=== PATIENT | male | born 1940 | race Caucasian/White ===

== ENCOUNTER 2016-07-15 07:45 | Emergency (ER) | payer MEDICARE ==
[2016-07-15] MEDS ORDERED: Aspirin Low Dose CHEW TAB* 81 MG PO ONE (08:08)
[2016-07-15 08:17] VITALS: BP 220/125
--- NOTE | 2016-07-15 10:23 | UC ---
Isael Ferguson Michael, scribed for Reta Reagan DO on 07/15/16 at 0818 . Hypertension HPI - HPI Summary HPI Summary: 76 y/o male comes to [facility] presenting with elevated blood pressure since last night. The pt reports that his blood pressure was approximately 200's/100's, but he did not have associated sx until this morning. His current blood pressure is 240/132. Nothing alleviates or aggravates his blood pressure. The pt also c/o dizziness and shakiness that started this morning. States that he alomst fainted in the shower. He also presents a constant, sharp right sided WALL that is aggravated with light. The pt has a hx of WALL, and he notes the current WALL feels nml. All other associated sx are negative. The PMHx is significant for WALL, HTN, hyperlipidemia, and lymphoma. - History of Current Complaint Stated Complaint: BP UP Time Seen by Provider: 07/15/16 07:46 Hx Obtained From: Patient, Medical Records Onset/Duration: Gradual Onset, Lasting Hours, Still Present Reported Blood Pressure Prior To Arrival:: 200/100 Aggravating Factor(s): Nothing Alleviating Factor(s): Nothing Associated Signs And Symptoms: Positive: Vision Changes - pjotophobia, Headaches , Dizziness - and shakiness. Negative: Chest Pain, Numbness, SOB - Risk Factors Cardiac Risk Factors: Hypertension - Allergies/Home Medications Allergies/Adverse Reactions: Allergies Allergy/AdvReac Type Severity Reaction Status Date / Time Penicillins [PCN] Allergy Unknown Verified 07/15/16 08:54 Reaction Details Sulfa Antibiotics Allergy Unknown Verified 07/15/16 08:54 Reaction Details Home Medications: Home Medications Lisinopril [Zestril 20 MG-] 20 mg PO DAILY 07/15/16 [History Confirmed 07/15/16] PMH/Surg Hx/FS Hx/Imm Hx - Additional Past Medical History Additional PMH: The PMHx is significant for WALL, HTN, hyperlipidemia, and lymphoma. Endocrine History Of: Denies: Diabetes Cardiovascular History Of: Reports: Hypertension - Surgical History Surgical History: None - Family History Known Family History: Positive: Unknown, Other - cancer-mother Family History: does not know family hx from father. - Social History Occupation: Retired Lives: With Family Alcohol Use: None Substance Use Type: None Smoking Status (MU): Never Smoked Tobacco Review of Systems Constitutional: Negative Skin: Negative Eyes: Negative ENT: Negative Respiratory: Negative Cardiovascular: Other - elevated high blood pressure Gastrointestinal: Negative Genitourinary: Negative Motor: Negative Neurovascular: Negative Musculoskeletal: Negative Neurological: Headache, Other - dizziness, near syncope Psychological: Negative All Other Systems Reviewed And Are Negative: Yes Physical Exam Triage Information Reviewed: Yes Appearance: Well-Appearing, Well-Nourished, Pain Distress - mild to moderate Vital Signs: Initial Vital Signs Temp 97.3 F 07/15/16 07:53 Pulse 115 07/15/16 07:53 Resp 16 07/15/16 07:53 BP 240/132 07/15/16 07:53 Pulse Ox 95 07/15/16 07:53 Vital Signs Reviewed: Yes Eyes: Positive: Conjunctiva Clear. Negative: Discharge ENT: Positive: Hearing grossly normal. Negative: Muffled/hoarse voice Neck: Positive: Supple, Nontender Respiratory: Positive: Lungs clear, Normal breath sounds, No respiratory distress, No accessory muscle use Cardiovascular: Positive: No Murmur, Tachycardia Musculoskeletal Exam: Normal Neurological: Positive: Alert, Muscle Tone Normal Psychological Exam: Normal Psychological: Positive: Age Appropriate Behavior Skin: Positive: Other - warm, dry, normal color Diagnostics - EKG Cardiac Rate: Tachycardia - 114. significant Q wave II and III Hypertension Course/Dx - Course Course Of Treatment: the pt was accepted to [facility] [place] - Differential Dx/Diagnosis Differential Diagnosis/HQI PQRI: Hypertension, Hypertensive Crisis, Migraine Headache, Myocardial Infarction Provider Diagnoses: hypertensive crisis, near syncope Discharge - Discharge Plan Condition: Guarded Disposition: TRANS HIGHER L OF CARE FAC Referrals: Leonard Norris MD [Medical Doctor] - The documentation as recorded by the Isael allen Michael accurately reflects the service I personally performed and the decisions made by , Reta Reagan DO.
== END 2016-07-15 08:25 | disposition short-term general hospital (02) ==
LOC: UCEAST 07:45
DX: I16.0 Hypertensive urgency (principal); I10 Essential (primary) hypertension; R55 Syncope and collapse
CPT/HCPCS: 93005; 99213; A9270-GY; G0463

== ENCOUNTER 2016-07-15 08:44 | Emergency (ER) | payer MEDICARE ==
[2016-07-15] MEDS ORDERED: NS 0.9% 1000 ML* 1,000 ML IV ONE (09:12)
[2016-07-15] MEDS ORDERED: Labetalol IV* 5 MG/ML 20 ML VIAL IV PUSH ONE ×2 (09:14→09:16)
[2016-07-15 09:25] LABS: Comments Flag Yes; Hematocrit 46 % (42-52); Hemoglobin 16.1 g/dl (14.0-18.0); Mean Corpuscular HGB Conc 35 g/dl (31-36); Mean Corpuscular Hemoglobin 31 pg (27-31); Mean Corpuscular Volume 89 fL (80-94); Mean Platelet Volume 8 um3 (7.4-10.4); Red Cell Distribution Width 13 % (10.5-15); White Blood Count 10.3 10^3/ul (3.5-10.8)
[2016-07-15 09:26] LABS: Add Diff/Slide Review? Slide Review Added
[2016-07-15 09:36] LABS: Albumin 4.2 g/dL (3.2-5.2); BUN/Creatinine Ratio 18.5 (8-20); C Reactive Protein 4.72 mg/L (< 5.00); Calcium 9.7 mg/dL (8.6-10.3); EGFR African American 73.3 (>60); Globulin 2.6 g/dL (2-4); Potassium 3.9 mmol/L (3.5-5.0); Total Bilirubin 0.8 mg/dL (0.2-1.0); Total Protein 6.8 g/dL (6.4-8.9)
[2016-07-15 09:38] LABS: Troponin I 0.01 ng/mL (<0.04)
--- NOTE | 2016-07-15 09:43 | RAD ---
HISTORY: Weakness, pneumonia, CHF COMPARISONS: None VIEWS:1: Single frontal portable view of the chest at 9:35 AM FINDINGS: LINES AND TUBES: None. CARDIOMEDIASTINAL SILHOUETTE: The cardiomediastinal silhouette is normal for portable technique. PLEURA: The costophrenic angles are sharp. No pleural abnormalities are noted. LUNG PARENCHYMA: The lung volumes are low. The lungs are clear accounting for the phase of inspiration. ABDOMEN: The upper abdomen is clear. There is no subphrenic gas. BONES AND SOFT TISSUES: No bone or soft tissue abnormalities are noted. IMPRESSION: LOW LUNG VOLUMES. NO ACTIVE CARDIOPULMONARY DISEASE.
[2016-07-15 09:45] LABS: TSH (Thyroid Stimulating Horm) 1.96 mcIU/mL (0.34-5.60)
[2016-07-15 10:10] LABS: Urine Bilirubin Negative (Negative); Urine Glucose Negative (Negative); Urine Nitrite Negative (Negative)
[2016-07-15] MEDS ORDERED: Metoprolol Tartrate TAB* 25 MG PO ONE (10:35)
[2016-07-15] MEDS ORDERED: Hydrochlorothiazide TAB* 25 MG PO ONE (10:35)
[2016-07-15] MEDS ORDERED: cloNIDine TAB* 0.1 MG PO ONE (10:35)
[2016-07-15] MEDS ORDERED: Lisinopril TAB* 10 MG PO ONE (10:36)
[2016-07-15 12:18] VITALS: BP 135/77
--- NOTE | 2016-07-15 13:37 | ED ---
Kenzie Freguson Matthew, scribed for Roly Larkin MD on 07/15/16 at 0914 . Hypertension - HPI Summary HPI Summary: A 76 y/o male presents to the ED with gradually worsening HTN since last night. The patient is not currently having pain. Associated symptoms include dizziness , lightheadedness, headache, photophobia, and fatigue. He denies chest pain, diaphoresis, urinary symptoms, recent illness, fever, chills, CVA, syncope, vertigo, rashes, pain, weakness, and slurred speech. The patient noted his BP beginning to gradually climb since last night, and while taking a shower this morning, he states he almost fainted multiple times. The patient's blood pressure normal runs ~140/88, and feels well at that pressure. He has recently Dx in February with neck CA, which has been giving him occasional pain. He has an appointment with Dr. Madera tomorrow. PMHx includes HTN, which he has had since high school. The patient denies HLD and Diabetes. He has not recently missed his medication. - History of Current Complaint Chief Complaint: EDHypertension Stated Complaint: HIGH BLOOD PRESSURE COMMING FROM [facility] Time Seen by Provider: 07/15/16 08:58 Hx Obtained From: Patient Onset/Duration: Started Days Ago - last night, Atraumatic, Still Present Timing: Constant Aggravating Factor(s): Nothing Alleviating Factor(s): Nothing Associated Signs & Symptoms: Headaches, Dizziness, Other: - Fatigue; Photophobia ; Lightheadedness - Allergies/Home Medications Allergies/Adverse Reactions: Allergies Allergy/AdvReac Type Severity Reaction Status Date / Time Penicillins [PCN] Allergy Unknown Verified 07/15/16 08:54 Reaction Details Sulfa Antibiotics Allergy Unknown Verified 07/15/16 08:54 Reaction Details Home Medications: Home Medications Hydrochlorothiazide TAB* [Hydrodiuril TAB*] 25 mg PO DAILY 07/15/16 [History Confirmed 07/15/16] Metoprolol Tartrate TAB* [Lopressor TAB*] 25 mg PO DAILY 07/15/16 [History Confirmed 07/15/16] PMH/Surg Hx/FS Hx/Imm Hx Endocrine/Hematology History: Denies: Hx Diabetes, Hx Thyroid Disease Cardiovascular History: Reports: Hx Hypertension Respiratory History: Denies: Hx Asthma, Hx Chronic Obstructive Pulmonary Disease (COPD) GI History: Denies: Hx Ulcer - Cancer History Cancer Type, 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 - Surgical History Surgery Procedure, Year, and Place: RIGHT ANKLE PIN 1963 Infectious Disease History: No Infectious Disease History: Denies: Hx Clostridium Difficile, Hx Hepatitis, Hx Human Immunodeficiency Virus (HIV), Hx of Known/Suspected MRSA, Hx Shingles, Hx Tuberculosis, Hx Known/ Suspected VRE, Hx Known/Suspected VRSA, History Other Infectious Disease, Traveled Outside the [place] in Last 30 Days - Family History Known Family History: Negative: Hypertension, Diabetes Family History: No FHx of CVA - Social History Alcohol Use: Rare Substance Use Type: Reports: None Smoking Status (MU): Former Smoker Review of Systems Positive: Fatigue. Negative: Fever, Chills, Skin Diaphoresis Positive: Photophobia ENT: Negative Cardiovascular: Negative Negative: Chest Pain Respiratory: Negative Negative: Shortness Of Breath Gastrointestinal: Negative Genitourinary: Negative Musculoskeletal: Negative Skin: Negative Neurological: Other - Dizziness; Lightheadedness Positive: Headache. Negative: Weakness, Numbness, Slurred Speech Psychological: Normal All Other Systems Reviewed And Are Negative: Yes Physical Exam - Summary Physical Exam Summary: The patient is well-nourished in no acute distress and in no acute pain. The skin is warm and dry and skin color reflects adequate perfusion. No diaphoresis noted. HEENT: The head is normocephalic and atraumatic. The pupils are equal and reactive. The conjunctivae are clear and without drainage. Nares are patent and without drainage. Mouth reveals moist mucous membranes and the throat is without erythema and exudate. The external ears are intact. The ear canals are patent and without drainage. The tympanic membranes are intact. Neck is supple with full range of motion and non-tender. There are no carotid bruits. There is no neck vein distension. The patient has mild edema on the right side of the neck. Respiratory: Chest is non-tender. Lungs are clear to auscultation and breath sounds are symmetrical and equal. Cardiovascular: Heart is regular rate and rhythm. There is no murmur or rub auscultated. There is no peripheral edema and pulses are symmetrical and equal. Abdomen: The abdomen is soft and non-tender. There are normal bowel sounds heard in all four quadrants and there is no organomegaly palpated. Musculoskeletal: There is no back pain noted. Extremities are non-tender with full range of motion. There is good capillary refill. There is no peripheral edema or calf tenderness elicited. Neurological: Patient is alert and oriented to person, place and time. The patient has symmetrical motor strength in all four extremities. Cranial nerves are grossly intact. Deep tendon reflexes are symmetrical and equal in all four extremities. Psychiatric: The patient has an appropriate affect and does not exhibit any anxiety or depression. Triage Information Reviewed: Yes Vital Signs On Initial Exam: Initial Vitals Temp Pulse Resp BP Pulse Ox 98.6 F 90 11 231/116 95 07/15/16 08:54 07/15/16 08:54 07/15/16 08:54 07/15/16 08:54 07/15/16 08:54 Vital Signs Reviewed: Yes Diagnostics - Vital Signs Vital Signs Temp Pulse Resp BP Pulse Ox 07/15/16 08:54 98.6 F 90 11 231/116 95 - Laboratory Lab Results: Lab Results 07/15/16 07/15/16 07/15/16 Range/Units 08:00 08:00 08:00 WBC 10.3 (3.5-10.8) 10^3/ul RBC 5.20 (4.0-5.4) 10^6/ul Hgb 16.1 (14.0-18.0) g/dl Hct 46 (42-52) % MCV 89 (80-94) fL MCH 31 (27-31) pg MCHC 35 (31-36) g/dl RDW 13 (10.5-15) % Plt Count 121 L (150-450) 10^3/ul MPV 8 (7.4-10.4) um3 Neut % (Auto) 53.1 (38-83) % Lymph % (Auto) 41.0 (25-47) % [place] % (Auto) 4.5 (1-9) % Eos % (Auto) 0.8 (0-6) % Baso % (Auto) 0.6 (0-2) % Absolute Neuts (auto) 5.5 (1.5-7.7) 10^3/ul Absolute Lymphs (auto) 4.2 (1.0-4.8) 10^3/ul Absolute Monos (auto) 0.5 (0-0.8) 10^3/ul Absolute Eos (auto) 0.1 (0-0.6) 10^3/ul Absolute Basos (auto) 0.1 (0-0.2) 10^3/ul Absolute Nucleated RBC 0.01 10^3/ul Nucleated RBC % 0.1 INR (Anticoag Therapy) 0.92 (0.89-1.11) Sodium 136 (133-145) mmol/L Potassium 3.9 (3.5-5.0) mmol/L Chloride 101 (101-111) mmol/L Carbon Dioxide 27 (22-32) mmol/L Anion Gap 8 (2-11) mmol/L BUN 23 (6-24) mg/dL Creatinine 1.24 H (0.67-1.17) mg/dL Est GFR ( Amer) 73.3 (>60) Est GFR (Non-Af Amer) 57.0 (>60) BUN/Creatinine Ratio 18.5 (8-20) Glucose 157 H (70-100) mg/dL Lactic Acid (0.5-2.0) mmol/L Calcium 9.7 (8.6-10.3) mg/dL Magnesium 2.0 (1.9-2.7) mg/dL Total Bilirubin 0.80 (0.2-1.0) mg/dL AST 17 (13-39) U/L ALT 17 (7-52) U/L Alkaline Phosphatase 62 (34-104) U/L Total Creatine Kinase 13 (10-223) U/L Troponin I 0.01 (<0.04) ng/mL C-Reactive Protein 4.72 (< 5.00) mg/L B-Natriuretic Peptide ( - 100) pg/mL Total Protein 6.8 (6.4-8.9) g/dL Albumin 4.2 (3.2-5.2) g/dL Globulin 2.6 (2-4) g/dL Albumin/Globulin Ratio 1.6 (1-3) TSH 1.96 (0.34-5.60) mcIU/mL Urine Color Urine Appearance Urine pH (5-9) Ur Specific [place] (1.010-1.030) Urine Protein (Negative) Urine Ketones (Negative) Urine Blood (Negative) Urine Nitrate (Negative) Urine Bilirubin (Negative) Urine Urobilinogen (Negative) Ur Leukocyte Esterase (Negative) Urine Glucose (Negative) 07/15/16 07/15/16 07/15/16 Range/Units 08:00 08:00 09:57 WBC (3.5-10.8) 10^3/ul RBC (4.0-5.4) 10^6/ul Hgb (14.0-18.0) g/dl Hct (42-52) % MCV (80-94) fL MCH (27-31) pg MCHC (31-36) g/dl RDW (10.5-15) % Plt Count (150-450) 10^3/ul MPV (7.4-10.4) um3 Neut % (Auto) (38-83) % Lymph % (Auto) (25-47) % [place] % (Auto) (1-9) % Eos % (Auto) (0-6) % Baso % (Auto) (0-2) % Absolute Neuts (auto) (1.5-7.7) 10^3/ul Absolute Lymphs (auto) (1.0-4.8) 10^3/ul Absolute Monos (auto) (0-0.8) 10^3/ul Absolute Eos (auto) (0-0.6) 10^3/ul Absolute Basos (auto) (0-0.2) 10^3/ul Absolute Nucleated RBC 10^3/ul Nucleated RBC % INR (Anticoag Therapy) (0.89-1.11) Sodium (133-145) mmol/L Potassium (3.5-5.0) mmol/L Chloride (101-111) mmol/L Carbon Dioxide (22-32) mmol/L Anion Gap (2-11) mmol/L BUN (6-24) mg/dL Creatinine (0.67-1.17) mg/dL Est GFR ( Amer) (>60) Est GFR (Non-Af Amer) (>60) BUN/Creatinine Ratio (8-20) Glucose (70-100) mg/dL Lactic Acid 1.6 (0.5-2.0) mmol/L Calcium (8.6-10.3) mg/dL Magnesium (1.9-2.7) mg/dL Total Bilirubin (0.2-1.0) mg/dL AST (13-39) U/L ALT (7-52) U/L Alkaline Phosphatase (34-104) U/L Total Creatine Kinase (10-223) U/L Troponin I (<0.04) ng/mL C-Reactive Protein (< 5.00) mg/L B-Natriuretic Peptide 37 ( - 100) pg/mL Total Protein (6.4-8.9) g/dL Albumin (3.2-5.2) g/dL Globulin (2-4) g/dL Albumin/Globulin Ratio (1-3) TSH (0.34-5.60) mcIU/mL Urine Color Yellow Urine Appearance Clear Urine pH 7.0 (5-9) Ur Specific [place] 1.014 (1.010-1.030) Urine Protein Negative (Negative) Urine Ketones Negative (Negative) Urine Blood Negative (Negative) Urine Nitrate Negative (Negative) Urine Bilirubin Negative (Negative) Urine Urobilinogen Negative (Negative) Ur Leukocyte Esterase Negative (Negative) Urine Glucose Negative (Negative) Result Diagrams: 07/15/16 08:00 07/15/16 08:00 Lab Statement: Any lab studies that have been ordered have been reviewed, and results considered in the medical decision making process. - Radiology CXR Xray Interpretation: No Acute Changes - IMPRESSION: LOW LUNG VOLUMES. NO ACTIVE CARDIOPULMONARY DISEASE. Radiology Interpretation Completed By: Radiologist - EKG 08:47 Cardiac Rate: NL - 90 bpm EKG Rhythm: Sinus Rhythm ST Segment: Non-Specific - III; AvF EKG Interpretation: Poor R Wave Progression; Normal [place] Hypertension Course/Dx - Course Assessment/Plan: A 76 y/o male presents to the ED with gradually worsening HTN since last night. Associated symptoms include dizziness, lightheadedness, headache, photophobia, and fatigue. He denies chest pain, diaphoresis, urinary symptoms, recent illness, fever, chills, CVA, syncope, vertigo, rashes, pain, weakness, and slurred speech. Labs were reviewed. The patient has an elevated creatinine of 1.24 and glucose of 157. CXR shows no active cardiopulmonary disease. EKG shows sinus rhythm at 90 bpm with non-specific ST changes in leads III and AvF, and Poor R Wave progression. In the ED course, the patient was given IV fluids 1L and 2 doses of labetalol (20mg, 40mg). I discussed the case with Dr. Norris who recommended increasing hydrochlorothiazide to 25mg and starting 0.1mg clonidine as well as his PO home medications. The patient will be discharged home and follow-up with his PCP. - Diagnoses Differential Diagnosis/HQI PQRI: Hypertension, Hypertensive Crisis, Hypertensive Urgency Provider Diagnoses: Hypertensive urgency - Physician Notifications Discussed Care Of Patient With: Dr. Norris (Primary Care) at 10:30 Notified of patients history and recommends increasing hydrochlorothiazide to 25mg and starting 0.1mg clonidine as well as give him his morning PO medications. Discharge - Discharge Plan Condition: Stable Disposition: HOME Prescriptions: Hydrochlorothiazide TAB* [Hydrodiuril TAB*] 25 mg PO DAILY #30 tab cloNIDine TAB* [Catapres TAB*] 0.1 mg PO BID #60 tab Patient Education Materials: Clonidine (By mouth), Hydrochlorothiazide (By mouth), Chronic Hypertension (ED), Hypertensive Crisis (ED) Referrals: Leonard Norris MD [Primary Care Provider] - 2 Days Additional Instructions: Please continued lisinopril and metoprolol as directed, increase hydrochlorothiazide 12.5mg to 25mg daily and add 0.1mg Clonidine twice daily. Please follow-up with your primary care physician in two days. The documentation as recorded by the Kenzie allen Matthew accurately reflects the service I personally performed and the decisions made by , Roly Larkin MD.
== END 2016-07-15 12:15 | disposition home or self-care (01) ==
LOC: ED 08:44
DX: I16.0 Hypertensive urgency (principal); I10 Essential (primary) hypertension; R42 Dizziness and giddiness; R51 Headache; R55 Syncope and collapse; R53.83 Other fatigue; H53.149 Visual discomfort, unspecified; Z87.891 Personal history of nicotine dependence
CPT/HCPCS: 36415; 71010; 80053; 81003; 82550; 83605; 83735; 83880; 84443; 84484; 85025; 85610; 86140; 93005; 96361; 96374; 96375; 99213; 99283; A9270-GY; G0463

== ENCOUNTER 2019-05-31 14:41 | Emergency (ER) | payer MEDICARE ==
--- OUTSIDE RECORDS SUMMARY | 2019-05-31 14:46 | XMS REPORT | Continuity of Care Document ---
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 Onset: 03/02/2016 Prediabetes Leonard Norris M.D. Onset: 06/22/2016 Chronic kidney disease stage 1 Leonard Norris M.D. Onset: 06/22/2016 Chronic lymphoid leukemia, disease Leonard Norris M.D. Onset: 10/02/2016 Note: follows Dr. Madera Type 2 diabetes mellitus Manav Goldman NP Onset: 07/06/2017 Social History Type Date Description Comments Sex Unknown ETOH Use Occasionally consumes 1 wk alcohol Tobacco Use Start: Unknown End: Patient is a former 5 pack years quit Unknown smoker 1974 Recreational Drug Use Never Used Drugs Smoking Status Reviewed: 05/14/19 Patient is a former 5 pack years quit smoker 1974 Exercise Type/Frequency Does gardening 5 times a week Allergies, Adverse Reactions, Alerts Active Allergies Reaction Severity Comments Date Penicillin Itch Mild 03/02/2016 Sulfa Antibiotics Itch Mild 03/02/2016 Medications Active Medications SIG Qnty Indications Ordering Date Provider Baclofen take 1/2-1 tab 30tabs M54.5 Manav Goldman NP 05/14/2019 10mg every 8 hours as Tablets needed Amlodipine Besylate Take One Tablet By 90tabs I10 Manav Goldman NP 2017 Mouth Every Day 5mg Tablets Lisinopril take one tablet by 90tabs I10 Manav Goldman NP 01/27/2018 40mg mouth one time Tablets daily Freestyle Lite check fingerstick 3 1units E11.9 Manav Goldman NP 11/14/2017 Blood Glucose to 4 times daily or Monitoring System as needed dx code e11.9 Last seen Device 11/13/17 Freestyle Lite Test test twice daily 60units E11.9 Manav Goldman NP 2017 daily or as needed Strips dx code: e11.9 last seen 05/14/18 Freestyle Lancets 3-4 times daily 100units E11.9 Manav Goldman NP 2017 and as needed E11.9 Misc last seen 11/13/17 Tamsulosin HCL take two capsules 90caps R35.1 Manav Goldman NP 03/02/2016 by mouth every day 0.4mg Capsules History Medications Influenza,Unspecified Unknown - 04/06/2016 Injection Immunizations CPT Code Status Date Vaccine Lot # [id number] Given 05/14/2018 Pneumococcal Conjugate Vaccine 13 Valent For [id number] Intramuscular Use [id number] Given 07/08/2007 Td (History By Patient) [id number] Refused 04/06/2016 Fluvirin Im 3Yrs And Older Vital Signs Date Vital Result Comment 05/14/2019 8:27am Height 68 inches 5'8" Weight 215.50 lb Heart Rate 81 /min BP Systolic 163 mmHg BP Diastolic 86 mmHg Body Temperature 98.1 F O2 % BldC Oximetry 97 % BMI (Body Mass Index) 32.8 kg/m2 11/11/2018 10:25am Height 68 inches 5'8" Weight 212.12 lb Heart Rate 76 /min BP Systolic 173 mmHg BP Diastolic 90 mmHg Body Temperature 97.6 F O2 % BldC Oximetry 97 % BMI (Body Mass Index) 32.2 kg/m2 Results Test Acquired Date Facility Test Result H/L Range Note Laboratory test 05/07/2019 [facility] Hemoglobin A1c 5.8 % High 4.0-5.[address] (Glyco HGB) [place] [address] [phone] Lipid Profile 05/07/2019 [facility] Triglycerides 269 mg/dL 2 (Trig/Chol/HDL) [address] [place] [address] [phone] Cholesterol 178 mg/dL 3 HDL Cholesterol 28.0 mg/dL 4 LDL Cholesterol 96 mg/dL 5 Urine Microalbumin 05/07/2019 [facility] Ur Microalbumin < 15.[address] (mg/L) mg/[place] [address] [phone] Urine Creatinine 157.78 mg/dL Urine Microalbumin/Creatinine TNP <31 6 CBC Auto 03/13/2019 [facility] White Blood 6.1 10^3/uL Normal 3.5-10.[address] [place] [address] [phone] Red Blood Count 4.34 10^6/uL Normal 4.18-5.48 Hemoglobin 14.1 g/dL Normal 14.0-18.0 Hematocrit 40 % Low 42-52 Mean Corpuscular Volume 93 fL Normal 80-94 Mean Corpuscular Hemoglobin 33 pg High 27-31 Mean Corpuscular HGB Conc 35 g/dL Normal 31-36 Red Cell Distribution Width 14 % Normal 10-15 Platelet Count 155 10^3/uL Normal 150-450 Mean Platelet Volume 7.3 fL Low 7.4-10.4 Abs Neutrophils 4.7 10^3/uL Normal 1.5-7.7 Abs Lymphocytes 0.7 10^3/uL Low 1.0-4.8 Abs Monocytes 0.4 10^3/uL Normal 0-0.8 Abs Eosinophils 0.2 10^3/uL Normal 0-0.6 Abs Basophils 0.1 10^3/uL Normal 0-0.2 Abs Nucleated RBC 0.0 10^3/uL Granulocyte % 76.9 % Lymphocyte % 12.1 % Monocyte % 7.3 % Eosinophil % 2.7 % Basophil % 1.0 % Nucleated Red Blood Cells % 0.2 Comp Metabolic 03/13/2019 [facility] Sodium 139 mmol/L Normal 135-[address] [place] [address] [phone] Potassium 4.5 mmol/L Normal 3.5-5.0 Chloride 105 mmol/L Normal 101-111 Co2 Carbon Dioxide 26 mmol/L Normal 22-32 Anion Gap 8 mmol/L Normal 2-11 Glucose 161 mg/dL High 70-100 Blood Urea Nitrogen 21 mg/dL Normal 6-24 Creatinine 1.22 mg/dL High 0.67-1.17 BUN/Creatinine Ratio 17.2 Normal 8-20 Calcium 9.7 mg/dL Normal 8.6-10.3 Total Protein 6.9 g/dL Normal 6.4-8.9 Albumin 4.4 g/dL Normal 3.2-5.2 Globulin 2.5 g/dL Normal 2-4 Albumin/Globulin Ratio 1.8 Normal 1-3 Total Bilirubin 1.00 mg/dL Normal 0.2-1.0 Alkaline Phosphatase 77 U/L Normal 34-104 Alt 22 U/L Normal 7-52 Ast 20 U/L Normal 13-39 Egfr Non- 57.8 >60 Egfr 69.9 >60 7 1 Therapeutic target for the treatment of diabetes mellitus patients is <7% HBA1C, and in selective patients <6.0%. Please refer to [place] [employer] diabetic care guidelines for further information. 2 Desirable: <150 Borderline High: 150-199 High: 200-499 Very High: >500 3 Desirable: <200 Borderline High: 200-239 High: >239 4 Low: <40 Desirable: 40-60 High: >60 5 Desirable: <100 Near Optimal: 100-129 Borderline High: 130-159 High: 160-189 Very High: >189 6 Unable to calculate due to low microalbumin 7 Because ethnic data is not always readily available, this report includes an eGFR for both -Americans and non- Americans. The National Kidney Disease Education Program (NKDEP) does not endorse the use of the MDRD equation for patients that are not between the ages of 18 and 70, are , have extremes of body size, muscle mass, or nutritional status, or are non- or non-. According to the National Kidney Foundation, irrespective of diagnosis, the stage of the disease is based on the level of kidney function: Stage Description GFR(mL/min/1.73 m(2)) 1 Kidney damage with normal or decreased GFR 90 2 Kidney damage with mild decrease in GFR 60-89 3 Moderate decrease in GFR 30-59 4 Severe decrease in GFR 15-29 5 Kidney failure <15 (or dialysis) Procedures Date Code Description Status 03/24/2019 [id number] Diabetic Retinal Eye Exam Completed Medical Devices Description No Information Available Encounters Description No Information Available Assessments Date Code Description Provider 05/14/2019 E11.9 Type 2 diabetes mellitus without complications Manav Goldman NP 05/14/2019 I10 Essential (primary) hypertension Manav Goldman NP 05/14/2019 N40.0 Benign prostatic hyperplasia without lower urinary Manav Goldman NP tract symptoms 05/14/2019 M79.10 Myalgia, unspecified site Manav Goldman NP 05/14/2019 M54.5 Low back pain Manav Goldman NP Plan of Treatment Future Appointment(s):11/12/2019 8:40 am - Manav Goldman NP at [facility] Internal Medicine - [facility]05/14/2019 - Manav Goldman NPE11.9 Type 2 diabetes mellitus without complicationsNew Labs:Creatine Kinase(CK), Ordered: 05/14/19Comments: Your A1c is 5.8% which is great.Follow up:6 months, 20 minRecommendations:See your lisw every year. It is OK to go every 2 years if he finds no retinal damage from diabetes. Ask your lisw to communicate his findings to us. See a slab off mill tender every 6 months if you have numbness in your feet or a history of foot ulcers.I10 Essential (primary) hypertensionComments: Your home blood pressures are in good control. Continue to monitor and let me know if it is regularly greater than 150/90.N40.0 Benign prostatic hyperplasia without lower urinary tract symptomsNew Labs:PSA Screening, Ordered: Comments:Start taking two of the tamsulosin and have the bloodwork done.M79.10 Myalgia, unspecified siteNew Labs:Erythrocyte Sed Rate, Ordered: 01/23C Reactive Protein, Ordered: 05/14/19Cyclic Citrullinated Pep Igg, Ordered : 05/14/19Anti Nuclear Antibody, Ordered: 05/14/19Creatine Kinase(CK), Ordered: 05/14/19Lyme Screen W/ Reflex To WB, Ordered: 05/14/19M54.5 Low back painNew Medication:Baclofen 10 mg - take 1/2-1 tab every 8 hours as needed Goals 05/14/2019 - Manav Goldman NPE11.9 Type 2 diabetes mellitus without complicationsGoal Hemoglobin A1c is less than 7.0%. Goal Blood pressure is less than 130/85. Functional Status Description No Information Available Mental Status Description No Information Available Referrals Description No Information Available
--- NOTE | 2019-05-31 14:54 | UC ---
Shoulder Pain HPI - HPI Summary HPI Summary: 78 yo male presents with RIGHT shoulder injury. 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 Since that time has had limited ROM and pain in his right proximal humerus. He takes tramadol for pain and this is helping. He did not hit his head or have LOC. Denies numbness or tingling. No chest pain, palpitations, syncope. He stopped his metformin a few months ago due to hypoglycemia. - History of Current Complaint Stated Complaint: SHOULDER INJURY Time Seen by Provider: 05/31/19 14:54 Hx Obtained From: Patient Onset/Duration: Sudden Onset Severity Initially: Moderate Severity Currently: Severe Pain Intensity: 8 Pain Scale Used: 0-10 Numeric - Allergies/Home Medications Allergies/Adverse Reactions: Allergies Allergy/AdvReac Type Severity Reaction Status Date / Time MS Penicillins [PCN] Allergy Unknown Verified 07/15/16 08:54 Reaction Details MS Sulfa Antibiotics Allergy Unknown Verified 07/15/16 08:54 [Sulfa Antibiotics] Reaction Details Penicillins Allergy Unknown Verified 05/31/19 14:44 Reaction Details Sulfa (Sulfonamide Allergy Unknown Verified 05/31/19 14:44 Antibiotics) Reaction Details Home Medications: Home Medications Tamsulosin HCl [Flomax] 0.8 mg PO DAILY 05/31/19 [History Confirmed 05/31/19] amLODIPine TAB* [Norvasc 5 mg TAB*] 5 mg PO DAILY 05/31/19 [History Confirmed ] traMADol TAB* [Ultram*] 50 mg PO Q6HR PRN 05/31/19 [History Confirmed 05/31/19] PMH/Surg Hx/FS Hx/Imm Hx - Additional Past Medical History Additional PMH: Lymphoma Endocrine History: Dyslipidemia Cardiovascular History: Hypertension - Surgical History Surgical History: Yes Surgery Procedure, Year, and Place: RIGHT ANKLE PIN 1963 - Family History Known Family History: Positive: Other - cancer-mother Negative: Hypertension, Diabetes Family History: No FHx of CVA - Social History Occupation: Retired Lives: With Family Alcohol Use: Rare Substance Use Type: None Smoking Status (MU): Former Smoker Review of Systems All Other Systems Reviewed And Are Negative: No Constitutional: Positive: Negative Skin: Positive: Negative Eyes: Positive: Negative ENT: Positive: Negative Respiratory: Positive: Negative Cardiovascular: Positive: Negative Gastrointestinal: Positive: Negative Genitourinary: Positive: Negative Motor: Positive: Negative Neurovascular: Positive: Negative Musculoskeletal: Positive: Other: - Shoulder injury Neurological: Positive: Negative Psychological: Positive: Negative Physical Exam - Summary Physical Exam Summary: GENERAL: NAD. WDWN. No pain distress. SKIN: No rashes, sores, lesions, or open wounds. CHEST: No accessory muscle use. Breathing comfortably and in no distress. CV: Tachycardia. Pulses intact radial and ulnar. Cap refill <2seconds MSK: RIGHT SHOULDER: TTP about proximal humerus. No ROM due to pain. FROM and NTTP at elbow and neck. NEURO: Alert. Sensations intact C4-T1 b/l PSYCH: Age appropriate behavior. Triage Information Reviewed: Yes Vital Signs: Vital Signs: Temp Pulse Resp BP Pulse Ox 99.9 F 122 18 151/76 94 05/31/19 15:01 05/31/19 15:01 05/31/19 15:01 05/31/19 15:01 05/31/19 15:01 Laboratory Tests 05/31/19 16:15 POC Glucose (mg/dL) 213 H Vital Signs Reviewed: Yes Diagnostics - Radiology Shoulder XR Radiology Interpretation Completed By: Radiologist Summary of Radiographic Findings: IMPRESSION: Limited due to patient positioning. I cannot totally exclude a glenoid fracture. - EKG EKG Comparison: Other Summary of EKG Findings: Sinus tachycardia at 113bpm. New RBBB and age indeterminate inferior infarct. Compared to 07/2016. Shoulder Course/Dx - Course Course Of Treatment: XR as above. It was noted that he was tachycardic on exam today - he has no dizziness, weakness, SOB, chest pain, or palpitations. EKG as above. Discussed case with Dr. Mcginnis. Advised pt to go to the ED given new EKG findings and CT of his shoulder. - Pt adamantly declined. POC glucose 213. I believe the patient is clinically sober, free from distracting injury, appears to have insight and reasoning and, in my judgment, has capacity to make decisions. I have explained that I am concerned his EKG may represent ACS and have explained my concerns and they have verbalized understanding. I have discussed the need to obtain more information about the cause of the pain and his EKG. I have told the patient if they do not seek eval/treatment in the ED their condition could get much worse, could become critically ill and suffer disability and possibly . He continued to decline ER eval and wishes to be discharged. Strongly encouraged to go to the ER if symptoms worsen or if he develops new symptoms. He and family voiced understanding. HE was given a sling for his shoulder pain and likely occult fracture. Advised to f/u with ORthopedics this week. Pt left AMA. - Differential Dx/Diagnosis Provider Diagnosis: Shoulder pain, ST segment changes on electrocardiogram Discharge ED - Sign-Out/Discharge Documenting (check all that apply): Patient Departure All imaging exams completed and their final reports reviewed: Yes - Discharge Plan Condition: Stable Disposition: AGAINST MEDICAL ADVICE Referrals: Manav Goldman NP [Primary Care Provider] - Antonio Spears MD [Medical Doctor] - As Soon As Possible Additional Instructions: I recommend that you go to the ER for a CT scan of your shoulder and further evaluation of your changed EKG. Follow up with Orthopedics next week regarding your shoulder - Billing Disposition and Condition Condition: STABLE Disposition: Against Medical Advice
[2019-05-31 15:03] VITALS: BP 151/76
== END 2019-05-31 16:30 | disposition left against medical advice (07) ==
LOC: UCEAST 14:41
DX: M25.511 Pain in right shoulder (principal); I10 Essential (primary) hypertension; E78.5 Hyperlipidemia, unspecified; R94.31 Abnormal electrocardiogram [ECG] [EKG]; Z87.891 Personal history of nicotine dependence; Z79.899 Other long term (current) drug therapy; Z88.0 Allergy status to penicillin; Z88.2 Allergy status to sulfonamides
CPT/HCPCS: 93005; 99212; G0463

== ENCOUNTER 2019-06-01 11:34 | Emergency (ER) | payer MEDICARE ==
--- NOTE | 2019-06-01 14:21 | ED ---
Upper Extremity Pain - HPI Summary HPI Summary: This pt is a 78 y/o male [facility] c/o worsening right shoulder pain s /p injury 2 days ago. Pt reports he was working on changing machinery 2 days ago when he tripped and fell, landing on his right shoulder on cement. He states he also "banged" his right elbow. He denies head strike or LOC. Pt states he went to Urgent Care yesterday where he had a shoulder XR and an EKG. Chest XR results were inconclusive and pt was advised to come to the ED last night for a CT and for an abnormal EKG but pt declined. Pt notes his right shoulder pain has been worsening since his fall. He also states he is "woozy" but denies dizziness. Denies headache, neck pain, chest pain, SOB, dizziness. Pt took Tramadol 50 mg this morning with mild relief. - History of Current Complaint Chief Complaint: EDExtremityUpper Stated Complaint: FELL ON RT SHOULDER PER PT Time Seen by Provider: 06/01/19 13:50 Hx Obtained From: Patient Mechanism Of Injury: Direct Blow Onset/Duration: Started Days Ago - 2, Still Present Timing: Lasting Days - 2 Severity Currently: Moderate Pain Location: Shoulder - right Character: Sharp Aggravating Factor(s): Movement Alleviating Factor(s): Rest Associated Signs & Symptoms: Positive: Other - NEGATIVE: headache, dizziness. Negative: Fever, Chest Pain, SOB, Neck Pain Related History: Other: - seen at Urgent Care yesterday where he had an XR and it was inconclusive. - Allergies/Home Medications Allergies/Adverse Reactions: Allergies Allergy/AdvReac Type Severity Reaction Status Date / Time Penicillins Allergy Unknown Verified 06/01/19 11:48 Reaction Details Sulfa (Sulfonamide Allergy Unknown Verified 06/01/19 11:48 Antibiotics) Reaction Details PMH/Surg Hx/FS Hx/Imm Hx Endocrine/Hematology History: Denies: Hx Diabetes, Hx Thyroid Disease Cardiovascular History: Reports: Hx Congestive Heart Failure, Hx Hypertension Respiratory History: Denies: Hx Asthma, Hx Chronic Obstructive Pulmonary Disease (COPD) GI History: Denies: Hx Ulcer - Cancer History Cancer Type, 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 - Surgical History Surgical History: Yes Surgery Procedure, Year, and Place: RIGHT ANKLE PIN 1963 Infectious Disease History: No Infectious Disease History: Denies: Hx Clostridium Difficile, Hx Hepatitis, Hx Human Immunodeficiency Virus (HIV), Hx of Known/Suspected MRSA, Hx Shingles, Hx Tuberculosis, Hx Known/ Suspected VRE, Hx Known/Suspected VRSA, History Other Infectious Disease, Traveled Outside the [place] in Last 30 Days - Family History Known Family History: Positive: Other - cancer-mother Negative: Hypertension, Diabetes Family History: No FHx of CVA - Social History Alcohol Use: Rare Substance Use Type: Reports: None Smoking Status (MU): Former Smoker Review of Systems Negative: Fever Negative: Chest Pain Negative: Shortness Of Breath Musculoskeletal: Other - POSITIVE: right shoulder pain Negative: Other - NEGATIVE: neck pain Neurological: Other - POSITIVE: "woozy." NEGATIVE: dizziness Negative: Headache All Other Systems Reviewed And Are Negative: Yes Physical Exam - Summary Physical Exam Summary: GENERAL: Patient is a well-developed and nourished male who is lying comfortable in the stretcher. Patient is not in any acute respiratory distress. HEAD AND FACE: No signs of trauma. No ecchymosis, hematomas or skull depressions. No sinus tenderness. EYES: PERRLA, EOMI x 2, No injected conjunctiva, no nystagmus. EARS: Hearing grossly intact. Ear canals and tympanic membranes are within normal limits. MOUTH: Oropharynx within normal limits. NECK: Supple, trachea is midline, no adenopathy, no JVD, no carotid bruit, no c- spine tenderness, neck with full ROM. CHEST: Symmetric, no tenderness at palpation LUNGS: Clear to auscultation bilaterally. No wheezing or crackles. CVS: Regular rate and rhythm, S1 and S2 present, no murmurs or gallops appreciated. ABDOMEN: Soft, non-tender. No signs of distention. No rebound no guarding, and no masses palpated. Bowel sounds are normal. EXTREMITIES: Right upper extremity: Decreased ROM on right shoulder secondary to pain. No deformity. Good pulses. Good capillary refill. NEURO: Alert and oriented x 3. No acute neurological deficits. Speech is normal and follows commands. SKIN: Dry and warm Triage Information Reviewed: Yes Vital Signs On Initial Exam: Initial Vitals Temp Pulse Resp BP Pulse Ox 99.3 F 90 16 126/70 94 06/01/19 11:45 06/01/19 11:45 06/01/19 11:45 06/01/19 11:45 06/01/19 11:45 Vital Signs Reviewed: Yes Procedures - Sedation Patient Received Moderate/Deep Sedation with Procedure: No Diagnostics - Vital Signs Vital Signs Temp Pulse Resp BP Pulse Ox 06/01/19 11:45 99.3 F 90 16 126/70 94 - Laboratory Result Diagrams: 06/01/19 15:54 06/01/19 15:54 Lab Statement: Any lab studies that have been ordered have been reviewed, and results considered in the medical decision making process. - Radiology Right elbow XR Radiology Interpretation Completed By: Radiologist Summary of Radiographic Findings: IMPRESSION: Degenerative changes of the right elbow are noted. Limited study. Dr. Castellanos has reviewed this report. - CT Right upper extremity CT CT Interpretation Completed By: Radiologist Summary of CT Findings: IMPRESSION: #. Normal acromioclavicular and glenohumeral joint alignment. #. Bone density appears decreased throughout. No fracture of the visualized clavicle, scapula including the glenoid, or proximal humerus evident. Negative for rib fracture within the [id number]. #. Advanced osteoarthritis of the acromioclavicular joint. Concave undersurface of the acromion process with anterior inferior bone spur. #. Extensive calcific tendinopathy involving the supraspinatus, infraspinatus, and subscapularis tendons. Associated mild to moderate muscle atrophy. #. Glenohumeral joint osteoarthritis. Extensive chondrocalcinosis at the glenoid labrum and glenohumeral joint hyaline articular cartilage. #. Glenohumeral joint effusion with calcified loose bodies including conglomerate of loose bodies at the posterior joint recess measuring up to approximate 2.1 x 1.1 x 1.0 cm. Associated fluid at the long head biceps tendon sheath. Dr. Castellanos has reviewed this report. - EKG 16:10 Cardiac Rate: NL - at 82 bpm EKG Rhythm: Sinus Rhythm EKG Comparison: Other - Different compared to EKG done on 07/15/16. Summary of EKG Findings: EKG at 16:10 shows normal sinus rhythm at a rate of 82 bpm. RBBB. Re-Evaluation - Re-Evaluation First Eval Re-Evaluation Time: 15:38 Comment: Reviewed imaging results with pt. Pt reports he has also been feeling weak for the past couple of days. Will obtain labs and EKG. Course/Dx - Course Assessment/Plan: This patient is a 78-year-old male who presents to the emergency department with a chief complaint of right shoulder pain. The patient reports that he fell out of a tractor yesterday and since then the patient is having pain. Denies any head trauma or neck trauma. Denies any headache or neck pain. CT right shoulder IMPRESSION: #. Normal acromioclavicular and glenohumeral joint alignment. #. Bone density appears decreased throughout. No fracture of the visualized clavicle, scapula including the glenoid, or proximal humerus evident. Negative for rib fracture within the [id number]. #. Advanced osteoarthritis of the acromioclavicular joint. Concave undersurface of the acromion process with anterior inferior bone spur. #. Extensive calcific tendinopathy involving the supraspinatus, infraspinatus, and subscapularis tendons. Associated mild to moderate muscle atrophy. #. Glenohumeral joint osteoarthritis. Extensive chondrocalcinosis at the glenoid labrum and glenohumeral joint hyaline articular cartilage. #. Glenohumeral joint effusion with calcified loose bodies including conglomerate of loose bodies at the posterior joint recess measuring up to approximate 2.1 x 1.1 x 1.0 cm. Associated fluid at the long head biceps tendon sheath. Right elbow x ray IMPRESSION: Degenerative changes of the right elbow are noted. Limited study. Before the patient was discharged the patients reports that he has been very weak in the last couple weeks. She will prefer to do the workup before discharge. Blood work without any significant abnormality except for WBCs of 11.3, creatinine 1.25, glucose 285, troponin 0.03, urinalysis is negative for UTI. Patients EKG shows a normal sinus rhythm with a right bundle branch block which is different compared to a previous EKG done on July 15, 2016. The patient reports that he wants to go home and he doesnt want to repeat the blood work for the troponin as he doesnt want to stay in the hospital. I had a long discussion and explanation of the risk of having an increased troponin and abnormal EKG. The patients children were also present as well as the in the discussion. They understand the risk of leaving home , which can include acute coronary syndrome, and , and following up with the primary care physician tomorrow. They understand and agree. Therefore the patient will be discharged home with follow-up from his primary care physician and they will also follow up with cardiology. Patient is hemodynamically stable , alert and oriented 3. - Diagnoses Differential Diagnosis/HQI/PQRI: Positive: Burn, Contusion, Fracture (Closed), Strain, Sprain Provider Diagnoses: Right shoulder pain, Elevated troponin Discharge ED - Sign-Out/Discharge Documenting (check all that apply): Patient Departure - Discharge home - Discharge Plan Condition: Stable Disposition: HOME Prescriptions: HYDROcodone/ACETAMIN 5-325 MG* [Valmora 5-325 TAB*] 1 tab PO Q6H PRN #12 tab MDD 4 PRN Reason: Pain - Moderate Patient Education Materials: Shoulder Pain (ED) Referrals: Manav Goldman NP [Primary Care Provider] - Additional Instructions: FOLLOW UP WITH YOUR PRIMARY CARE PROVIDER IN 2-3 DAYS. RETURN TO THE EMERGENCY DEPARTMENT FOR ANY WORSENING OR NEW SYMPTOMS. - Billing Disposition and Condition Condition: STABLE Disposition: Home - Attestation Statements Document Initiated by Frank: Yes Documenting Yanaibe: Shwetha Marcano Provider For Whom Frank is Documenting (Include Credential): Hunter Castellanos MD Scribe Attestation: Shwetha Ferguson scribed for Hunter Castellanos MD on 06/02/19 at 0821. Scribe Documentation Reviewed: Yes Provider Attestation: The documentation as recorded by the Shwetha allen accurately reflects the service I personally performed and the decisions made by me, Hunter Castellanos MD Status of Scribe Document: Viewed
[2019-06-01] MEDS ORDERED: oxyCODONE/Acetamin 5/325 MG* TAB PO ONE (14:29)
[2019-06-01] MEDS ORDERED: Ketorolac *IM* INJ* 60 MG/2 ML VIAL IM ONE (14:30)
[2019-06-01] MEDS ORDERED: Ketorolac *IM* INJ* 60 MG/2 ML VIAL ONE (15:42)
[2019-06-01 16:28] LABS: ABS Basophils 0.1 10^3/ul (0-0.2); ABS Lymphocytes 0.6 10^3/ul (1.0-4.8); ABS Neutrophils 9.6 10^3/ul (1.5-7.7); Eosinophil % 0.1 %; Hematocrit 42 % (42-52); Hemoglobin 14.7 g/dL (14.0-18.0); Lymphocyte % 5.2 %; Mean Corpuscular HGB Conc 35 g/dL (31-36); Mean Corpuscular Hemoglobin 32 pg (27-31); Mean Corpuscular Volume 92 fL (80-94); Mean Platelet Volume 7.5 fL (7.4-10.4); Nucleated Red Blood Cells % 0.2; Platelet Count 147 10^3/uL (150-450); Red Blood Count 4.55 10^6 /uL (4.18-5.48); Red Cell Distribution Width 14 % (10-15); White Blood Count 11.3 10^3/uL (3.5-10.8)
[2019-06-01 16:29] LABS: Albumin 4.4 g/dL (3.2-5.2); Calcium 10.2 mg/dL (8.6-10.3); Potassium 4.1 mmol/L (3.5-5.0)
[2019-06-01 16:35] LABS: Albumin/Globulin Ratio 1.5 (1-3); BUN/Creatinine Ratio 17.6 (8-20); EGFR African American 67.9 (>60); EGFR Non-African American 56.2 (>60); Total Protein 7.4 g/dL (6.4-8.9)
[2019-06-01 16:36] LABS: Troponin I 0.03 ng/mL (<0.03)
[2019-06-01 16:50] LABS: TSH (Thyroid Stimulating Horm) 0.93 mcIU/mL (0.34-5.60)
[2019-06-01 17:42] LABS: Urine Appearance Clear; Urine Bilirubin Negative (Negative); Urine Blood 1+ (Negative); Urine Color Amber; Urine Glucose Negative (Negative); Urine Ketones Negative (Negative); Urine Nitrite Negative (Negative); Urine Protein 1+(30 mg/dL) (Negative); Urine Specific Gravity 1.025 (1.010-1.030); Urine Urobilinogen Negative (Negative)
[2019-06-01 17:48] LABS: Urine Bacteria Absent (Absent); Urine Red Blood Cell Absent (Absent); Urine Squamous Epithelial Cell Present (Absent); Urine White Blood Cell Trace(0-5/hpf) (Absent)
[2019-06-01 18:35] VITALS: BP 145/69
== END 2019-06-01 18:15 | disposition home or self-care (01) ==
LOC: ED 11:34
DX: M25.511 Pain in right shoulder (principal); R79.89 Other specified abnormal findings of blood chemistry; I45.10 Unspecified right bundle-branch block; I50.9 Heart failure, unspecified; I10 Essential (primary) hypertension; Z88.0 Allergy status to penicillin; Z88.2 Allergy status to sulfonamides; Z87.891 Personal history of nicotine dependence; W01.0XXA Fall on same level from slipping, tripping and stumbling without subsequent striking against object, initial encounter; Y92.9 Unspecified place or not applicable
CPT/HCPCS: 36415; 80053; 81003; 81015; 82553; 83605; 83735; 83880; 84443; 84484; 85025; 87086; 93005; 96372; 99282; A9270-GY; J1885

== ENCOUNTER 2019-09-02 12:38 | Day surgery (SDC) | payer MEDICARE ==
--- NOTE | 2019-08-24 14:45 | HP ---
PREOPERATIVE HISTORY AND PHYSICAL: DATE OF ADMISSION/SURGERY: 09/02/19 DATE OF OFFICE VISIT/ENCOUNTER: 08/20/19 ATTENDING SURGEON: Antonio Spears MD.* (DICTATED BY CYNDEE DIEGO) PROCEDURE: Right shoulder arthroscopic rotator cuff repair, massive, retracted , with possible superior capsular repair; arthroscopic decompression; arthroscopic excision distal clavicle; possible release biceps tendon. HISTORY OF PRESENT ILLNESS: This is a 79-year-old male, right-hand dominant, who has had ongoing problems with his right shoulder since he fell in May of 2019. He landed hard directly down onto the right shoulder. X-rays and a CT scan were ordered for evaluation of the shoulder. X-rays showed no acute findings except there was AC joint narrowing identified. The CT scan showed calcific tendinopathy of the rotator cuff tendons and loose bodies at the posterior aspect of the glenohumeral joint along with fluid along the long head of the biceps. The patient failed conservative treatment including subacromial cortisone injection and rest; however, his pain persists. He also tried physical therapy. He is having pain with very basic activities of daily life such as with eating. He denies any associated numbness or tingling. He has opted for surgical intervention at this time. PAST MEDICAL HISTORY: 1. Hypertension. 2. History of diabetes, diet controlled. 3. History of lymphoma with chemotherapy. PAST SURGICAL HISTORY: 1. Bilateral cataract removal. 2. Right ankle surgery. CURRENT MEDICATIONS: 1. Amlodipine besylate 5 mg daily. 2. Hydrocodone/acetaminophen 5/325 mg 1 q.6 hours p.r.n. pain. 3. Lisinopril 40 mg daily. 4. Tamsulosin HCl 0.4 mg 2 capsules daily. ALLERGIES: PENICILLIN and SULFA cause hives. FAMILY MEDICAL HISTORY: Cancer. SOCIAL HISTORY: The patient is retired. He lives at home with his . 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 He is a former smoker, 5-pack year. He quit in 1973. He denies recreational drug use. He drinks alcohol on occasion. REVIEW OF SYSTEMS: Negative for general, cephalic, cardiovascular, respiratory , GI, , endocrine, integumentary, other musculoskeletal, neurologic, and hematologic symptoms. PHYSICAL EXAMINATION GENERAL: A well-developed, well-nourished 79-year-old male, in no acute distress. VITAL SIGNS: Height 5 feet 8 inches, weight 213 pounds. Pulse rate 72, blood pressure 128/76. HEENT: Normocephalic, atraumatic. Pupils are equal, round, and reactive to light and accommodation. Extraocular movements are intact. Throat is clear. NECK: Supple. No palpable lymph nodes. CARDIOVASCULAR: Regular rate and rhythm. S1, S2. No murmurs, rubs, or gallops. No edema. ABDOMEN: Positive bowel sounds. Soft, nontender. NEUROLOGICAL: Alert and oriented x3. Cranial nerves II through XII are intact. Sensation is intact to light touch. MUSCULOSKELETAL: On exam of his right shoulder, passive range of motion is 100 degrees of forward flexion, 45 degrees external rotation, 60 degrees internal rotation. Pain and weakness with supraspinatus and infraspinatus stress testing. Pain with Speed's and [place]'s, Neer's and Ty-Malik impingement. Tenderness to palpation at the proximal biceps. Neurovascular function is intact. IMAGING STUDIES: X-rays of the right shoulder show AC joint narrowing. MRI of the right shoulder shows supraspinatus rotator cuff tendon tear with tendon retracted just lateral to the glenoid. There appears to be some significant infraspinatus rotator cuff tendon tear as well. There is elevation of the humeral head. CT scan shows calcific tendinopathy of the rotator cuff tendons, calcified loose bodies at the posterior aspect of the glenohumeral joint, and fluid along the long head of the biceps. IMPRESSION: As above: 1. Right shoulder massive rotator cuff tendon tear, retracted. 2. Right shoulder subacromial impingement and bursitis, acromioclavicular joint osteoarthritis, possible biceps tenodesis. PLAN: The patient is scheduled to undergo right shoulder arthroscopic rotator cuff repair, massive, retracted, with possible superior capsular repair; arthroscopic decompression; arthroscopic excision distal clavicle; possible release biceps tendon with Dr. Spears on 09/02/19. He will return to the office 10 days postop for followup and suture removal. Postoperative pain management medications will be prescribed on the day of surgery. CYNDEE DIEGO [id number]/[facility] #: [id number] YO
[~2019-09-02 12:38] MED LIST: Buffered Lidocaine 1% SYRIN* 1 ML/SYRINGE INTRADERM ONE; Dexamethasone IV* 4 MG/ML 1 ML (4 MG) IV SLOW PU ONE; Famotidine IV* 10 MG/ML 2 ML (20 mg) IV ONE; Lactated Ringers 1000 ML Bag* 1,000 ML IV SCH
[2019-09-02] MEDS ORDERED: Dexamethasone IV* 4 MG/ML 1 ML (4 MG) ONE (14:00)
[2019-09-02] MEDS ORDERED: Clindamycin 900 MG/D5W BAG(*) 900 MG/50 ML BAG IVPB ONE (14:00)
[2019-09-02] MEDS ORDERED: Buffered Lidocaine 1% SYRIN* 1 ML/SYRINGE INTRADERM ONE (14:01)
[2019-09-02] MEDS ORDERED: Famotidine IV* 10 MG/ML 2 ML (20 mg) ONE (14:01)
[2019-09-02] MEDS ORDERED: DiMENhydriNATE IV* 50 MG/ML VIAL IV PUSH PRN (14:38)
[2019-09-02] MEDS ORDERED: fentaNYL* 50 MCG/ML 2 ML VIAL (100 MCG VIAL) IV PRN (14:38)
[2019-09-02] MEDS ORDERED: oxyCODONE/Acetamin 5/325 MG* TAB PO PRN (14:38)
[2019-09-02] MEDS ORDERED: Naloxone* 0.4 MG/ML 1 ML VIAL IV PRN (14:38)
[2019-09-02] MEDS ORDERED: HYDROcodone/ACETAMIN 5-325 MG* 1 TAB PO PRN (14:38)
[2019-09-02] MEDS ORDERED: Lidocaine 2% PF * 5 ML VIAL ONE (15:46)
[2019-09-02] MEDS ORDERED: Rocuronium* 10 MG/ML VIAL ONE (15:46)
[2019-09-02] MEDS ORDERED: Midazolam* 1 MG/ML 2 ML VIAL (2 MG) ONE (15:46)
[2019-09-02] MEDS ORDERED: fentaNYL* 50 MCG/ML 2 ML VIAL (100 MCG VIAL) ONE (15:46)
[2019-09-02] MEDS ORDERED: Propofol* 10 MG/ML 20 ML BTL ONE (15:46)
[2019-09-02] MEDS ORDERED: Bupivacaine 0.5% W/EPI SDV* 30 ML VIAL ONE (15:48)
[2019-09-02] MEDS ORDERED: EPINEPHRINE 1 MG/ML 1 ML VIAL ONE (15:48)
[2019-09-02] MEDS ORDERED: ROPIVACAINE 5 MG/ML 30 ML BTL (0.5%) ONE (15:51)
[2019-09-02] MEDS ORDERED: Ondansetron INJ* 2 MG/ML VIAL ONE (18:33)
[2019-09-02] MEDS ORDERED: Glycopyrrolate IV* 0.2 MG/ML 1 ML VIAL ONE (18:33)
[2019-09-02] MEDS ORDERED: Neostigmine Methylsulfate* 3 MG/3 ML SYRINGE ONE (18:34)
[2019-09-02 21:06] VITALS: BP 122/65
--- NOTE | 2019-09-03 04:31 | OP ---
DATE OF OPERATION: 09/02/19 - [facility] DATE OF : 44 SURGEON: Dr. Antonio Spears. DELIVERY CLERK: CYNDEE Frey followed then by CYNDEE Diaz. A physician school health assistant was required for the length of the procedure for assistance with patient positioning, retraction, instrumentation, and closure. ANESTHESIOLOGIST: Dr. Fermin Disla. ANESTHESIA: General anesthesia, regional interscalene block anesthesia. PRE-OP DIAGNOSES: 1. Right shoulder rotator cuff tendon tear, massive retracted. 2. Right shoulder subacromial impingement and bursitis. 3. Right shoulder acromioclavicular joint osteoarthritis. 4. Right shoulder possible biceps tendinosis. POST-OP DIAGNOSES: 1. Right shoulder rotator cuff tendon tear, supraspinatus and anterior infraspinatus, torn off in an L shaped tear with the longitudinal limb of that tear in the anterior infraspinatus. The more inferior or posterior infraspinatus was degenerated or torn. 2. Right shoulder subacromial impingement and bursitis. 3. Right shoulder acromioclavicular joint osteoarthritis. 4. Right shoulder severe biceps long head tendinopathy and tearing. OPERATIVE PROCEDURE: 1. Right shoulder rotator cuff tendon repair, supraspinatus, infraspinatus, with double row fixation as well as side to side stitch. 2. Right shoulder arthroscopic subacromial decompression. 3. Right shoulder arthroscopic distal clavicle resection. 4. Right shoulder limited debridement including release of severely tendinotic long head biceps tendon, subacromial bursectomy, and an anterior interval slide , performed to enhance the supraspinatus rotator cuff tendon repair. ANTIBIOTICS: Clindamycin 900 mg IV. IV FLUIDS: See anesthesia note. [id number] TIME: 110 minutes. SPECIMEN: None. IMPLANTS: Arthrex corkscrew 5.5 mm suture anchors, double loaded with suture tape, x2. Arthrex SwiveLock 4.75 mm suture anchor x1. FiberWire #2 suture x1 used for a [id number] stitch. COMPLICATIONS: None. ESTIMATED BLOOD LOSS: Minimal. INDICATIONS FOR PROCEDURE: The patient is a 79-year-old man, right hand dominant, who fell at the end of May, three months preoperatively and developed pain and weakness in that right shoulder after the fall. Prior to that fall, he had had no significant problems with that shoulder. 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 MRI showed retraction of the supraspinatus to a point just lateral to the glenoid. There appeared also to be some significant infraspinatus tearing with retraction too between the humeral head apex and the glenoid. Moderate fatty atrophy supraspinatus and generalized degeneration of the muscle quality of the infraspinatus. Discussed with the patient nonoperative management, continued, versus arthroscopic surgery versus reverse shoulder arthroplasty. We decided on arthroscopic surgery, rotator cuff repair versus partial rotator cuff repair versus rotator cuff repair and superior capsular repair. Discussed risks and potential complications of surgery with the patient including recurrent rotator cuff tear. DESCRIPTION OF PROCEDURE: In the preoperative holding, the patient signed a written consent. Operative extremity was marked in the preoperative holding. The patient was taken back to the operating room and placed supine on the operating room table after having a regional interscalene nerve block performed in the preoperative holding. The patient was sedated and intubated and then converted to a lateral decubitus position. Axillary roll. All bony prominences were padded. Longitudinal traction 15 pounds. Martinez bag hardened. Right shoulder was prepped and draped. Formal surgical time-out performed. I placed a spinal needle in the right shoulder glenohumeral joint from posterior and infused 30 cc normal saline. Established posterior glenohumeral joint portal using standard technique. Diagnostic arthroscopy showed no high-grade articular cartilage lesions in the glenohumeral joint. The biceps tendon long head was not first clearly visible as it was opposed to the undersurface of rotator cuff and it was unclear what was rotator cuff and what was biceps at first. I established an anterior glenohumeral joint portal under direct visualization. I isolated the long head biceps tendon. It was incredibly frayed and torn. It was much thicker than it is typically because of this fraying. I used an electrocautery to cut it right at its origin of the superior labrum. It retracted nicely. I debrided lightly some superior labrum tissue and rotator cuff interval tissue. From within the joint, I could see that the supraspinatus appear to move further lateral than the glenoid, which was reassuring. I entered the subacromial space from posterior and anterior and then established a lateral and posterolateral portals under direct visualization. I examined the rotator cuff tear. It appeared there was actually an L shaped tear of the supraspinatus and the anterior most aspect of the infraspinatus as having torn off bone but then there was a longitudinal cut in the anterior most aspect of the infraspinatus. A rotator cuff grasper could nicely reduce the cuff to bone. Clearly this rotator cuff is not the highest appearing quality tissue but it held the traction stitch easily. To help with my repair and to help make it more tension free and effective, I performed an anterior interval slide release. I did this with cautery, releasing rotator cuff interval tissue to the base of the coracoid. I prepared the bare footprint on the humeral head with a cautery device and then a tam. I next placed my suture anchors, two in the medial row. These were placed through the superolateral poke holes. I then used a scope and an antegrade suture passer to place horizontal mattress stitches in the rotator cuff torn tissue. The anterior 3 stitches were simple horizontal mattress stitches. The most posterior suture I actually turned into a simple stitch with one limb of the suture I had grabbed the torn and retracted tissue then with the other limb the more inferior infraspinatus tissue that just appeared to be sagging and of poor quality. This brought rotator cuff excellently to bone. No exposed footprint. Tension free repair. To reinforce and supplement the repair, I placed a lateral roll anchor and sutured some medial roll. To probing and to movement, the rotator cuff repair was robust. The tendon of the supraspinatus and anterior most infraspinatus that I brought to bone was clearly repaired and repairable. The sagging more inferior infraspinatus tissue, it was less clear what quality type this had. It looked much as it appeared on the MRI preoperatively so a very degenerated tendon and muscle with a bursa over it, superficial to it. I performed subacromial decompression using an arthroscopic tam. I flattened out the undersurface of the anterior aspect of the acromion. I then removed 8 mm of the distal end the clavicle using the arthroscopic tam. I closed skin incisions with [id number] 12 stitches using nylon 3-0 suture. Xeroform, 4x4s, ABDs, foam tape. Sling and abduction pillow. DISPOSITION: Percocet as needed for pain control, sling at all times, wound care instructions, follow up with me in 10 to 14 days postoperatively. [id number]/[facility] #: [id number] YO
== END 2019-09-02 20:40 | disposition home or self-care (01) ==
LOC: OR 12:38
PROVIDERS: ATTEND Orthopaedic Surgery
DX: S46.011A Strain of muscle(s) and tendon(s) of the rotator cuff of right shoulder, initial encounter (principal); M75.41 Impingement syndrome of right shoulder; M75.51 Bursitis of right shoulder; M19.011 Primary osteoarthritis, right shoulder; M75.21 Bicipital tendinitis, right shoulder; G89.18 Other acute postprocedural pain; I10 Essential (primary) hypertension; E11.9 Type 2 diabetes mellitus without complications; Z85.72 Personal history of non-Hodgkin lymphomas; W19.XXXA Unspecified fall, initial encounter; Y92.9 Unspecified place or not applicable
CPT/HCPCS: C1713; J1100; J2250; J2405; J2704; J2710; J2795; J3010

== ENCOUNTER 2021-06-13 12:23 | Inpatient (IN) ==
[2021-06-13] MEDS ORDERED: Lidocaine PATCH 5% PATCH TRANSDERM ONE (13:18)
[2021-06-13 14:47] LABS: C Reactive Protein 250.6 mg/L (<8.01); Calcium 9.8 mg/dL (8.6-10.3); Potassium 3.9 mmol/L (3.5-5.0); eGFR CKD-EPI 65.8 (>60)
[2021-06-13 14:51] LABS: Urine Appearance Cloudy; Urine Bilirubin Negative (Negative); Urine Blood 1+ (Negative); Urine Color Amber; Urine Glucose Negative (Negative); Urine Ketones Negative (Negative); Urine Nitrite Negative (Negative); Urine Protein 1+(30 mg/dL) (Negative); Urine Specific Gravity 1.021 (1.002-1.030); Urine Urobilinogen Negative (Negative)
[2021-06-13 14:54] LABS: Urine Bacteria Absent (Absent); Urine Red Blood Cell Trace(0-2/hpf) (Absent); Urine Squamous Epithelial Cell Present (Absent); Urine White Blood Cell Trace(0-5/hpf) (Absent)
[2021-06-13 14:57] LABS: ABS Lymphocytes 0.5 10^3/ul (1.0-4.8); ABS Monocytes 0.9 10^3/ul (0-0.8); ABS Neutrophils 9.5 10^3/ul (1.5-7.7); Hematocrit 39 % (42-52); Hemoglobin 13.8 g/dL (14.0-18.0); Lymphocyte % 4.1 %; Mean Corpuscular HGB Conc 35 g/dL (31-36); Mean Corpuscular Hemoglobin 31 pg (27-31); Mean Corpuscular Volume 88 fL (80-94); Mean Platelet Volume 8.4 fL (7.4-10.4); Platelet Count 172 10^3/uL (150-450); Red Blood Count 4.43 10^6 /uL (4.18-5.48); Red Cell Distribution Width 16 % (10-15); White Blood Count 10.9 10^3/uL (3.5-10.8)
[2021-06-13 17:29] LABS: Erythrocyte Sed Rate 51 mm/Hr (0-19)
[2021-06-13 17:44] LABS: Albumin 3.4 g/dL (3.2-5.2); Albumin/Globulin Ratio 1.1 (1-3); Direct Bilirubin 0.5 mg/dL (0.03-0.18); Globulin 3.1 g/dL (2-4); Indirect Bilirubin 1.3 mg/dL (0.3-1.0); Total Bilirubin 1.8 mg/dL (0.2-1.0); Total Protein 6.5 g/dL (6.4-8.9)
[2021-06-13] MEDS ORDERED: Iohexol 300 (CONTRAST) 10 ML SDV IV ONE (20:38)
[2021-06-13] MEDS: Enoxaparin 40 MG/0.4 ML SYR SUBCUT SCH (22:01)
[2021-06-13] MEDS: Lidocaine Patch REMOVE NOTE PATCH OFF SCH (22:04)
[2021-06-13 23:24] LABS: Rapid COVID-19 Molecular Undetected (Undetected)
[2021-06-14 06:13] LABS: ABS Lymphocytes 0.4 10^3/ul (1.0-4.8); ABS Monocytes 0.8 10^3/ul (0-0.8); ABS Neutrophils 8.1 10^3/ul (1.5-7.7); Eosinophil % 0.1 %; Hematocrit 36 % (42-52); Hemoglobin 12.6 g/dL (14.0-18.0); Lymphocyte % 4.4 %; Mean Corpuscular HGB Conc 35 g/dL (31-36); Mean Corpuscular Hemoglobin 31 pg (27-31); Mean Corpuscular Volume 88 fL (80-94); Mean Platelet Volume 8.4 fL (7.4-10.4); Platelet Count 174 10^3/uL (150-450); Red Blood Count 4.03 10^6 /uL (4.18-5.48); Red Cell Distribution Width 16 % (10-15); White Blood Count 9.4 10^3/uL (3.5-10.8)
[2021-06-14 06:31] LABS: C Reactive Protein 253.81 mg/L (<8.01); Calcium 9.2 mg/dL (8.6-10.3); Globulin 2.9 g/dL (2-4); Potassium 3.9 mmol/L (3.5-5.0); Total Protein 5.9 g/dL (6.4-8.9); eGFR CKD-EPI 76.1 (>60)
[2021-06-14] MEDS ORDERED: Gadoteridol (CONTRAST) 279.3 MG/ML 10 ML IV ONE (15:33)
[2021-06-14] MEDS: Lidocaine Patch REMOVE NOTE PATCH OFF SCH (20:45)
[2021-06-14] MEDS: Enoxaparin 40 MG/0.4 ML SYR SUBCUT SCH (20:45)
[2021-06-15] MEDS: Lidocaine Patch REMOVE NOTE PATCH OFF SCH (21:08)
[2021-06-15] MEDS: Enoxaparin 40 MG/0.4 ML SYR SUBCUT SCH (21:18)
[2021-06-16 07:33] LABS: Calcium 8.8 mg/dL (8.6-10.3); Potassium 3.5 mmol/L (3.5-5.0); eGFR CKD-EPI 78.9 (>60)
[2021-06-16] MEDS: Gadoteridol (CONTRAST) 279.3 MG/ML 10 ML IV ONE ×2 (09:25→09:46)
[2021-06-16] MEDS ORDERED: Potassium Chlor 20 meq TAB.ER PO ONE (11:37)
[2021-06-16 12:16] LABS: ABS Basophils 0.1 10^3/ul (0-0.2); ABS Eosinophils 0.1 10^3/ul (0-0.6); ABS Lymphocytes 0.5 10^3/ul (1.0-4.8); ABS Monocytes 0.5 10^3/ul (0-0.8); ABS Neutrophils 5.4 10^3/ul (1.5-7.7); Hematocrit 35 % (42-52); Hematocrit for Retic CNT 35 % (42-52); Hemoglobin 12.2 g/dL (14.0-18.0); Immature Retic Fraction 0.34; Lymphocyte % 7.7 %; Mean Corpuscular HGB Conc 35 g/dL (31-36); Mean Corpuscular Hemoglobin 31 pg (27-31); Mean Corpuscular Volume 89 fL (80-94); Mean Platelet Volume 8.2 fL (7.4-10.4); Nucleated Red Blood Cells % 0.1; Platelet Count 191 10^3/uL (150-450); RBC Retic Count 3.99 10^6/uL (4.18-5.48); Red Blood Count 3.99 10^6 /uL (4.18-5.48); Red Cell Distribution Width 15 % (10-15); White Blood Count 6.6 10^3/uL (3.5-10.8)
[2021-06-16 13:27] LABS: TSH Ultra Thyroid Stim Horm 1.18 mcIU/mL (0.34-5.60)
[2021-06-16 16:33] LABS: Albumin 2.9 g/dL (3.2-5.2); Total Bilirubin 0.9 mg/dL (0.2-1.0)
[2021-06-16] MEDS: Cholecalciferol (VIT D3) 1,000 unit TAB PO SCH (16:37)
[2021-06-16 16:39] LABS: C Reactive Protein 142.84 mg/L (<8.01); Globulin 2.9 g/dL (2-4); Total Protein 5.8 g/dL (6.4-8.9)
[2021-06-16] MEDS: Lidocaine Patch REMOVE NOTE PATCH OFF SCH (21:05)
[2021-06-16] MEDS: Enoxaparin 40 MG/0.4 ML SYR SUBCUT SCH (21:20)
[2021-06-17 06:25] LABS: Calcium 9.1 mg/dL (8.6-10.3)
[2021-06-17] MEDS: Cholecalciferol (VIT D3) 1,000 unit TAB PO SCH (08:06)
[2021-06-18 06:07] LABS: ABS Lymphocytes 0.5 10^3/ul (1.0-4.8); ABS Monocytes 0.6 10^3/ul (0-0.8); ABS Neutrophils 9.1 10^3/ul (1.5-7.7); Hematocrit 34 % (42-52); Hemoglobin 12.1 g/dL (14.0-18.0); Lymphocyte % 5.1 %; Mean Corpuscular HGB Conc 35 g/dL (31-36); Mean Corpuscular Hemoglobin 31 pg (27-31); Mean Corpuscular Volume 88 fL (80-94); Mean Platelet Volume 8.2 fL (7.4-10.4); Platelet Count 194 10^3/uL (150-450); Red Blood Count 3.93 10^6 /uL (4.18-5.48); Red Cell Distribution Width 15 % (10-15); White Blood Count 10.2 10^3/uL (3.5-10.8)
[2021-06-18 06:13] LABS: INR 1.29 (0.86-1.15)
[2021-06-18 06:19] LABS: Albumin 2.6 g/dL (3.2-5.2); Calcium 8.9 mg/dL (8.6-10.3); Direct Bilirubin 0.1 mg/dL (0.03-0.18); Globulin 2.6 g/dL (2-4); Indirect Bilirubin 0.4 mg/dL (0.3-1.0); Magnesium 2.1 mg/dL (1.9-2.7); Potassium 4.1 mmol/L (3.5-5.0); Total Bilirubin 0.5 mg/dL (0.2-1.0); Total Protein 5.2 g/dL (6.4-8.9); eGFR CKD-EPI 79.9 (>60)
[2021-06-18] MEDS: Cholecalciferol (VIT D3) 1,000 unit TAB PO SCH (09:35)
[2021-06-18] MEDS ORDERED: Dextrose 50% Syringe 50 ml 25 GM/50 ML SYRINGE IV PUSH PRN (11:07)
[2021-06-18] MEDS: Carbidopa/Levodop 25/100 MG TAB PO SCH ×2 (18:00→20:44)
[2021-06-19] MEDS: Cholecalciferol (VIT D3) 1,000 unit TAB PO SCH (08:40)
[2021-06-19] MEDS: Carbidopa/Levodop 25/100 MG TAB PO SCH ×2 (08:41→14:08)
[2021-06-19 10:18] LABS: Hematocrit 38 % (42-52); Hemoglobin 12.9 g/dL (14.0-18.0); Mean Corpuscular HGB Conc 34 g/dL (31-36); Mean Corpuscular Hemoglobin 30 pg (27-31); Mean Corpuscular Volume 88 fL (80-94); Platelet Count 257 10^3/uL (150-450); Red Blood Count 4.28 10^6 /uL (4.18-5.48); Red Cell Distribution Width 15 % (10-15)
[2021-06-19 10:35] LABS: Albumin 3.1 g/dL (3.2-5.2); Albumin/Globulin Ratio 1.1 (1-3); Calcium 9.2 mg/dL (8.6-10.3); Globulin 2.7 g/dL (2-4); Potassium 3.5 mmol/L (3.5-5.0); Total Bilirubin 0.5 mg/dL (0.2-1.0); Total Protein 5.8 g/dL (6.4-8.9)
[2021-06-19 10:42] LABS: ABS Lymphocytes 0.5 10^3/ul (1.0-4.8); ABS Monocytes 0.7 10^3/ul (0-0.8); ABS Neutrophils 9.8 10^3/ul (1.5-7.7); Eosinophil % 0.2 %; Lymphocyte % 4.9 %; Nucleated Red Blood Cells % 0.1
[2021-06-19 10:53] LABS: RBC Morphology Normal (Normal)
[2021-06-19 12:45] VITALS: BP 133/67
== END 2021-06-19 15:25 | disposition home health service (06) | DRG 92 ==
LOC: EDHOLD 12:23 → ED 12:23 → MEDTELE 21:16
PROVIDERS: ADMIT Internal Medicine Hematology & Oncology; ATTEND Internal Medicine Hematology & Oncology